=== PATIENT | male | born 1970 | race American Indian/Alaskan Native ===

== ENCOUNTER 2025-07-20 08:43 | Day surgery (SDC) | payer OTHER ==
[~2025-07-20 08:43] MED LIST: propofoL 500 MG/50 ML 50 ML ONE
[2025-07-20] MEDS: Lactated Ringers 1,000 ML IV SCH (09:35)
[2025-07-20] MEDS ORDERED: Ketamine HCL/NACL, ISO-OSM 50 MG/5 ML Syringe ONE (10:12)
[2025-07-20] MEDS ORDERED: Ondansetron 4 MG/2 ML SDV ONE (10:20)
[2025-07-20] MEDS ORDERED: Propofol 200 MG/20 ML SDV ONE (10:33)
[2025-07-20] MEDS ORDERED: Lactated Ringers 1,000 ML IV SCH (11:00)
== END 2025-07-20 11:35 | disposition home or self-care (01) ==
LOC: MW.SDS 08:43
PROVIDERS: ATTEND Surgery
DX: Z12.11 Encounter for screening for malignant neoplasm of colon (principal); E66.01 Morbid (severe) obesity due to excess calories; Z68.41 Body mass index [BMI] 40.0-44.9, adult; Z83.719 Family history of colon polyps, unspecified; Z86.0100 Personal history of colon polyps, unspecified
CPT/HCPCS: 45378; J2405; J2704; J7120; 00812; J3490